=== PATIENT | female | born 1995 | race Two or more races ===

== ENCOUNTER 2021-07-27 15:39 | Emergency (ER) | payer OTHER ==
[~2021-07-27] VITALS: Ht 165.1 cm; Wt 62.6 kg
[2021-07-27] MEDS ORDERED: PRENATAL 19 CH1 EAC1 (15:49)
== END 2021-07-27 20:29 | disposition home or self-care (01) ==
LOC: ER 15:39
DX: O20.9 Hemorrhage in early pregnancy, unspecified (principal); Z3A.10 10 weeks gestation of pregnancy

== ENCOUNTER 2022-02-15 00:14 | Outpatient (CLI) | payer OTHER ==
[~2022-02-15 00:14] MED LIST: PRENATAL 19 CH1 EAC1
== END 2022-02-15 09:29 | disposition home or self-care (01) ==
LOC: OBS/DEL 00:14
PROVIDERS: ATTEND Specialist
DX: O47.1 False labor at or after 37 completed weeks of gestation (principal); Z3A.39 39 weeks gestation of pregnancy